=== PATIENT | male | born 1955 | race Hispanic/Latino ===

== ENCOUNTER 2017-05-20 07:06 | Outpatient (CLI) | payer BC ==
--- NOTE | 2017-05-21 10:25 | Vascular Lab Report ---
MESENTERIC ARTERIAL DUPLEX Reason for exam: Abdominal pain Comments: The aorta is patent. Flow velocities are within normal limits. Minimal atherosclerotic change is identified. No aneurysmal dilatation is noted. The celiac artery is patent. Flow velocities are elevated suggesting hemodynamically significant stenosis. The superior mesenteric artery is patent. 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 Clinical correlation is recommended. Further studies may be required such as CTA or MRA
== END 2017-05-20 07:07 | disposition home or self-care (01) ==
LOC: VAS 07:06
PROVIDERS: ATTEND Surgery Vascular Surgery
DX: I77.4 Celiac artery compression syndrome (principal); K55.1 Chronic vascular disorders of intestine
CPT/HCPCS: 93979